=== PATIENT | male | born 1960 | race Caucasian/White ===

== ENCOUNTER 2017-03-02 14:27 | Observation (INO) | payer MEDICARE ==
[~2017-03-02] VITALS: Ht 177.8 cm; Wt 186.4 kg
--- NOTE | ~2017-03-02 | OP ---
PATIENT NAME: AIDEN MCKEON MEDICAL RECORD: [id number] :58 LOCATION:D. D.2127 ADMISSION DATE:03/02/17 SURGEON: SELINA KOCH MD DATE OF OPERATION: 03/05/2017 PROCEDURES: Left heart catheterization, selective coronary angiography, right femoral artery approach. CATHETERS: A 5-Pashto sheath, 5/4 left and right Geronimo, 5/4 pig. The procedure was well tolerated and the patient returned to lainez. Sheath removed. Adequate hemostasis was obtained with ExoSeal. FINDINGS: Left ventriculography in 30-degree HERNANDES view: Normal wall motion, normal systolic function. CORONARY ANATOMY: LEFT MAIN: Left main is free of disease. LAD: An area of previous stenting is widely patent with no evidence of stenosis or restenosis. 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 CIRCUMFLEX: Free of disease. RIGHT CORONARY ARTERY: Free of disease. IMPRESSION: No evidence of restenosis. 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 Normal left ventricular systolic function. Noncardiac etiology and symptomatology. TRANSINT:[id number] Voice Confirmation ID: [id number] DOCUMENT ID: [id number] SELINA KOCH MD CC: [id number] DICTATION DATE: 03/05/17 1346 STATISTICAL DEVELOPER: 03/05/17 1503 ADM IN [facility] [address] [place] [address]
--- NOTE | ~2017-03-02 | HEMODYNAMI ---
PATIENT:AIDEN MCKEON MEDICAL RECORD: [id number] : 58 [facility] [id number] ADMISSION DATE: 03/02/17 Generatedon:03/05/201713:48 Patient name: AIDEN MCKEON Patient #: [id number] SSN: [id number] : 1960 Date of study: 03/05/2017 Page: Of Hemodynamic Procedure Report Patient Data Patient Demographics Procedure consent was obtained First Name: AIDEN Gender: Male Last Name: LINDA : 1960 [facility] Initial: T Age: 56 year(s) Patient #: [id number] Race: SSN: [id number] Additional ID: [id number] Contact details Address: [place] [address] State: [place] City: [place] Zip code: [address] Past Medical History Allergies Allergen Reaction Date Comments Reported Iodine 10/07/2015 Dilantin 10/07/2015 Sulfa, Morphine, Coreg, Fentanyl, Pindolol Admission Admission Data Admission Date: 03/02/2017 Admission Time: 15:08 Arrival Date: 03/02/2017 Arrival Time: 15:08 Admit Source: Other Insurance Payor: Medicare Room #: D.2127 Weight (lbs.): 410.06 Weight (kg.): 186 Lab Results Lab Result Date: 03/05/2017 Lab Result Time: 0:00 Biochemistry Name Units Result Min Max BUN mg/dl 24 --(----)-* 7 18 Creatinine mg/dl 1.1 --(--*-)-- 0.6 1.3 CBC Name Units Result Min Max Hemoglobin g/dl 17.1 --(---*)-- 13.5 17.5 Procedure Procedure Types Cath Procedure Diagnostic Procedure LHC LHC w/Coronaries Miscellaneous Procedures Moderate Sedation up to 30 minutes Procedure Description Procedure Date Procedure Date: 03/05/2017 Procedure Start Time: 13:31 Procedure End Time: 13:41 Procedure Staff Name Function Cale Ohara MD Performing Physician Floridalma Verduzco RT Scrub Alessandro Mars RN Nurse Kellie Lambert RT Monitor Vicente Hoyos MD Assisting physician Procedure Data Cath Procedure Fluoroscopy Diagnostic fluoroscopy Total fluoroscopy Time: 1.1 time: 1.1 min min Diagnostic fluoroscopy Total fluoroscopy dose: 784 dose: 784 mGy mGy Contrast Material Contrast Material Type Amount (ml) Isovue 300 56 Entry Location Entry Primary Successful Side Size Upsize Upsize Entry Closure Succes sful Closure Location (Fr) 1 (Fr) 2 (Fr) Remarks Device Remarks Femoral Right 5 Fr Exoseal artery Estimated blood loss: 5 ml Diagnostic catheters Device Type Used For End Catheter Placement Cordis 5Fr JL 4.0 Left Coronary Catheter (MP) Angiography Cordis 5Fr 3DRC Catheter Right Coronary (MP) Angiography Cordis 5Fr Pigtail LV Angiography Catheter (MP) Procedure Complications No complications Procedure Medications Medication Administration Route Dosage 0.9% NaCl I.V. 100 ml/hr Oxygen NRB 12 l/min Refer to Anesthesia Notes for Sedation Medications Hemodynamics Rest HGB: 17.1 (g/dl) Heart Rate: 70 (bpm) Pressure Samples Time Site Value (mmHg) Purpose Heart Use Rate(bpm) 13:37 LV 109/12,13 Snapshot 72 13:38 AO (78) Pullback 64 13:38 LV 109/14,13 Pullback 64 Gradients Valve Time Site 1 Site Mean SEP/DFP Peak To Heart Use 2 (mmHg) (sec/min) Peak Rate (mmHg) (bpm) Aortic 13:38 LV AO 11 11 64 109/14,13 (78) Calculations Valve P-P Mean Valve Index Valve Source Name Gradient Area Flow (cm2) Aortic 11 11 Snapshots Pre Cath Intra NCS Post Cath Vital Signs Time Heart Resp SPO2 etCO2 [id number] Respiration NIBP (mmHg) Rhythm Pain Sedation Rate (ipm) (%) (mmHg) (mmHg) (CO2) (ipm) Status Level (bpm) 13:19:08 68 16 96 0 0 149/86(129) NSR 0 (1 1) 10(A) , No pain 13:23:22 71 11 96 0 0 146/80(117) NSR 0 (1 1) 10(A) , No pain 13:27:38 69 13 96 16.5 6.7 17 125/70(87) NSR 0 (1 1) 10(A) , No pain 13:31:50 66 23 95 29.3 4.5 9 116/65(81) NSR 0 (1 1) 9(A) , No pain 13:36:00 71 19 92 2.2 2.2 113/60(85) NSR 0 (1 1) 9(A) , No pain 13:40:00 72 22 95 27.8 1.5 107/62(83) NSR 0 (1 1) 9(A) , No pain 13:47:52 70 21 96 18.8 6.7 19 118/67(85) NSR 0 (1 1) 9(A) , No pain Medications Time Medication Route Dose Verified Delivered Reason Notes Effectiven ess by by 13:13:36 0.9% NaCl I.V. 100 Levi Levi Per ml/hr Velia Gunn physician RN RN 13:15:04 Oxygen NRB 12 Levi Levi Per l/min Velia Gunn physician RN RN 13:27:53 Refer to Levi Levi Anesthesia Velia Gunn Notes for RN RN Sedation Medications Procedure Log Time Note 12:44:41 Informed consent obtained and on chart 12:45:12 Lab Result : Hemoglobin 17.1 g/dl 12:45:12 Lab Result : Creatinine 1.1 mg/dl 12:45:12 Lab Result : BUN 24 mg/dl 12:45:18 Diagnostic Cath Status : Elective 12:47:27 Admit Source: Other 12:48:09 Arrival Date: 03/02/2017 3:08:00 PM 12:48:19 Insurance Payor : Medicare 12:50:08 Alessandro Mars RN sent for patient. Start room use. 12:50:09 Time tracking: Regular hours 12:50:15 Plan of Care:Hemodynamics will remain stable., Cardiac rhythm will remain stable., Comfort level will be maintained., Respiratory function will remain adequate., Patient/ family verbilizes understanding of procedure., Procedure tolerated without complication., Recovers from procedure without complications.. 12:56:35 Mikey Sandoval present and monitoring patient for TIVA. 13:03:00 Patient Weight : 410.06 kg 13:06:18 Patient received from Med II to CCL 1 Alert and oriented. Tansferred to table in Supine position. 13:06:20 Warm blankets applied, and marlin hugger turned on for patient comfort. 13:06:20 Correct patient and procedure confirmed by team. 13:06:23 ECG and BP/O2 sat monitors applied to patient. 13:13:36 0.9% NaCl 100 ml/hr I.V. was administered by Levi Gunn RN; Per physician; 13:15:04 Oxygen 12 l/min NRB was administered by Levi Gunn RN; Per physician; 13:18:06 Vital chart was started 13:18:08 Baseline sample Acquired. 13:18:12 Rhythm: sinus rhythm 13:18:14 Full Disclosure recording started 13:18:27 H&P Date Dictated: 03/02/2017 Within 30 days and on chart., H&P Addendum completed by physician on day of procedure. (MUST COMPLETE FOR ALL OUTPATIENTS). 13:18:29 Pre-procedure instructions explained to patient. 13:18:30 Pre-op teaching completed and patient verbalized understanding. 13:18:31 Family in waiting room. 13:18:33 Patient NPO since Midnight. 13:18:39 Is the patient allergic to Iodine/contrast media? Yes. 13:18:41 Was the patient premedicated? Yes 13:18:43 Is patient on blood thinner?Yes 13:18:48 ACC The patient was administered the following blood thiners within the last 24 hours: ACCPlavix 13:18:51 Patient diabetic? Yes. 13:18:56 If diabetic: On Metformin? No 13:19:11 Previous problem with sedation/anesthesia? Yes ? 13:19:13 Previous problem with sedation/anesthesia? No ? 13:19:15 Snore? Yes 13:19:16 Sleep apnea? Yes 13:19:18 Deviated septum? No 13:19:20 Opens mouth fully? Yes 13:19:30 Sticks out tongue? Yes 13:19:38 Airway obstruction? Yes asthma 13:19:42 Dentures? No ? 13:22:00 Pre procedure: right dorsailis pedis pulse 1+ Palpable, but thready & weak; easily obliterated 13:22:05 Pre procedure: left dorsailis pedis pulse 1+ Palpable, but thready & weak; easily obliterated 13:22:09 Patient pain scale 0/10 ?. 13:22:17 IV patent on arrival in right IJ with 0.9% NaCl at KVO. 13:22:22 Lab results completed and on chart. 13:22:27 Right groin area was prepped with chlora-prep and draped in sterile fashion 13:22:28 Alarms reviewed by R. N. 13:22:29 Sharps counted by scrub and verified by R.N. 13:22:32 Physician paged 13:23:02 Physician arrived 13:23:06 --------ALL STOP TIME OUT------ 13:23:07 Final Timeout: patient, procedure, and site verified with staff and physician. All members of the team are in agreement. 13:23:09 Right groin site verified by team. 13:23:14 Physical assessment completed. ASA score P 3 - A patient with severe systemic disease as per Vicente Hoyos MD. 13:23:19 Sedation plan: TIVA Propofol 13:23:38 Use device set Femoral Dx 13:23:44 Acist Syringe opened to sterile field. 13:23:45 Bag Decanter opened to sterile field. 13:23:46 Medline Cath Pack opened to sterile field. 13:23:50 Terumo 5Fr Greencastle Sheath opened to sterile field. 13:23:51 St Richi 260cm J .035 wire opened to sterile field. 13:23:53 Acist Hand Control opened to sterile field. 13:23:53 Acist Manifold opened to sterile field. 13:23:56 Diagnostic Infinity 5Fr Multipack catheter opened to sterile field. 13:23:57 Tegaderm 4 x 4 opened to sterile field. 13:27:53 Refer to Anesthesia Notes for Sedation Medications was administered by Levi Gunn RN; ; 13:30:54 Procedure started. 13:31:04 Local anesthetic to right femoral artery with Lidocaine 2% by Vicente Hoyos MD.INITIAL ACCESS ONLY 13:33:02 A 5 Fr sheath was inserted into the Right Femoral artery 13:33:21 A Cordis 5Fr JL 4.0 Catheter (MP) was advanced over the wire and used for Left Coronary Angiography. 13:34:29 LCA angiography performed. 13::38 Injector settings: Ml/sec: 3, Volume: 6, 13:35:20 Catheter removed. 13:35:27 A Cordis 5Fr 3DRC Catheter (MP) was advanced over the wire and used for Right Coronary Angiography. 13:36:29 RCA angiography performed. 13:36:32 Injector settings: Ml/sec: 3, Volume: 6, 13:36:43 Catheter removed. 13:36:51 A Cordis 5Fr Pigtail Catheter (MP) was advanced over the wire and used for LV Angiography. 13:38:19 LV gram done using HERNANDES 13:38:21 Injector settings: Ml/sec: 5, Volume: 15, 13:38:28 EF : 55 % 13:38:39 Catheter removed. 13:39:03 Sheath removed intact; hemostasis achieved with Exoseal to the Right Femoral artery. 13:39:07 Procedure ended.(Physican Out) 13:39:57 Fluoroscopy time 01.10 minutes. 13:40:08 Flurop Dose total: 784 13:40:08 Fluoroscopy dose: 784 mGy 13:40:16 Contrast amount:Isovue 300 56ml. 13:40:18 Sharps counted by scrub and verified by R.N. 13:40:20 Insertion/operative site no bleeding no hematoma. 13:40:24 Post-op/insertion site Right Femoral artery dressed using a 4 x 4 and Tegaderm. 13:40:28 Post right femoral artery:stable 13:40:30 Post Procedure Pulses reassessed and unchanged 13:40:34 Post procedure rhythm: unchanged. 13:40:41 Estimated blood loss: 5 ml 13:40:45 Post procedure instruction explained to patient.Patient verbalizes understanding. 13:40:46 Patient needs reinforcement of post procedure teaching. 13:41:09 Procedure type changed to Cath procedure, Diagnostic procedure, LHC, LHC w/Coronaries, Miscellaneous Procedures, Moderate Sedation up to 30 minutes 13:41:10 Procedure and supply charges have been captured, reviewed, submitted and are correct. 13:41:15 Procedure Complication : No complications 13:41:19 Vital chart was stopped 13:41:24 Report given to [facility]. 13:41:26 See physician's report for complete and final results. 13:41:30 Patient transfered to [facility] with Stretcher. 13:41:33 Procedure ended. 13:41:33 Full Disclosure recording stopped 13:41:36 End room use (Document Last) Device Usage Item Name Manufacture Quantity Catalog Hospital Part Current Minimal Lo t# / Number Charge Number Stock Stock Serial# Code Acist Acist 1 77569 [id number] 278411 836063 20 Syringe Medical Systems Inc Bag Microtek 1 2002S 890688 43704 295764 5 Decanter Medical Inc. Medline Cardinal 1 [id number] 642061 87471 060976 5 Cath Pack Health Terumo 5Fr Terumo 1 [id number] 977314 435033 791398 [address] St Richi 1 629271 513337 189737 639200 30 260cm J .035 wire Acist Hand Acist 1 86234 039347 492451 434445 5 Control Medical Systems Inc Acist Acist 1 84133 249332 777411 026082 5 Manifold Medical Systems Inc Diagnostic Cardinal 1 [id number] 026500 33477 328149 30 Infinity Health 5Fr Multipack catheter Tegaderm 4 3M 1 1626W 323029 764735 107489 5 x 4 Cordis 5Fr Cardinal 1 277648 5 JL 4.0 Health Catheter (MP) Cordis 5Fr Cardinal 1 113986 5 3DRC Health Catheter (MP) Cordis 5Fr Cardinal 1 408642 5 Pigtail Health Catheter (MP) Signature Audit Tama Stage Time Signature Unsigned Intra-Procedure 03/05/2017 Kellie Lambert 1:48:18 PM RT(R) Signatures Monitor : Kellie Lambert RT Signature : Date : Time : [id number] [place] [address]
[~2017-03-02 14:27] MED LIST: ASPIRIN325 MG PO; BYSTOLIC10 MG PO; CARDIZEM CD240 MG PO; CATAPRES0.1 MG PO; CATAPRES0.2 MG PO; LANTUS SOL100 UNIT/1 SQ; LIDOCAINE TP; MARINOL10 MG PO; METOPROLOL TART50 MG PO; MYLANTA PO; NITROSTAT0.4 MG SL; NOVOLOG100 U/M1 SC; OXYCONTIN30 MG PO; PLAVIX75 MG PO; PREDNISONE20 MG PO; PROAIR HFA8.5 GM INH; TOPROL XL100 MG PO; VALIUM5 MG PO; VITAMIN D2000 UNIT PO; [UNRECOGNIZED DRUG - OTHER] PO
[2017-03-02 15:00] LABS: BASOPHILS 0.5 % (0-2); EOSINOPHILS 2.5 % (0-7); HEMATOCRIT 45.8 % (42.0-54.0); HEMOGLOBIN 14.9 g/dL (13.5-17.5); IMMATURE GRANULOCYTES 0.9 % (0-5); LYMPHOCYTES 28.1 % (15-50); MCH 32.3 pg (26.0-34.0); MCHC 32.5 g/dL (31.0-37.0); MCV 99.1 fL (80.0-100.0); MEAN PLATELET VOLUME 11.6 fL (7.4-10.4); MONOCYTES 14.6 % (2-11); NEUTROPHILS 53.4 % (40-80); PLATELET COUNT 175 10x3/uL (130-400); RBC 4.62 10x6/uL (4.20-6.10); RDW 12.6 % (11.5-14.5); WBC 11.8 10x3/uL (4.8-10.8)
[2017-03-02 15:19] LABS: ALBUMIN 3.3 g/dL (3.4-5.0); ALKALINE PHOSPHATASE 45 U/L (46-116); ALT (SGPT) 28 U/L (10-68); BILIRUBIN - TOTAL 0.23 mg/dL (0.2-1.3); CALC OSMOLALITY 280 mosm/kg (275-300); CALCIUM 8.4 mg/dL (8.5-10.1); CHLORIDE - SERUM 103 mmol/L (98-107); CREATININE - SERUM 0.8 mg/dL (0.6-1.3); GLUCOSE 90 mg/dL (74-106); POTASSIUM - SERUM 4.1 mmol/L (3.5-5.1); SODIUM 139 mmol/L (136-145); UREA NITROGEN 21 mg/dL (7-18); eGFR NON AFRICAN AMERICAN > 90 mL/min (90-120)
[2017-03-02 15:30] LABS: CHOL - HDL RATIO 5.8 ratio (2.3-4.9); CHOLESTEROL, TOTAL 245 mg/dL (0-200); CKMB 0.2 U/L (0.0-3.6); CREATINE KINASE 61 UL (21-232); HDL CHOLESTEROL 42 mg/dL (32-96); LDL CHOLESTEROL 140 mg/dL (0-100); LDL-HDL RATIO 3.3 ratio (1.5-3.5); TRIGLYCERIDE 315 mg/dL (30-200)
[2017-03-02 15:31] LABS: TROPONIN-I < 0.017 ng/mL (0.000-0.060)
[2017-03-02] MEDS ORDERED: OXYCONTIN10 MG PO (15:52)
[2017-03-02] MEDS ORDERED: LISINOPRIL10 MG PO (15:53)
[2017-03-02] MEDS ORDERED: FUROSEMIDE20 MG PO (15:53)
[2017-03-02 15:54] VITALS: BP 144/77; Ht 177.8 cm; Wt 186.4 kg
[2017-03-02] MEDS ORDERED: K-DUR20 MEQ PO (15:54)
[2017-03-02] MEDS ORDERED: METOLAZONE5 MG PO (15:54)
--- NOTE | 2017-03-02 16:04 | NUR ---
PT TO ROOM FROM ADMISSIONS ALERT AND ORIENTED. VS ARE WNL. ADMISSION COMPLETE.
--- NOTE | 2017-03-02 16:17 | NUR ---
PT ON TELE RUNNING SINUS DREW [address] FLOYD HERE TO SEE PT. AND DAUGHTER ARE AT BEDSIDE.
--- NOTE | 2017-03-02 17:02 | NUR ---
ASIA VAS NURSE SITED PT TO R UPPER ARM 20G X4 STICKS.
--- NOTE | 2017-03-02 18:14 | NUR ---
PT SITTING UP IN BED WATCHES TV DENIES NEEDS
--- NOTE | 2017-03-02 19:18 | NUR ---
PT IN BED. REQUESTS A LARGER BED. [employer] CALLED. DENIES FURTHER NEEDS WILL CONTINUE TO MONITOR
[2017-03-02 20:00] VITALS: BP 128/65
--- NOTE | 2017-03-03 03:21 | NUR ---
PT COMPLAINING OF CHEST PAIN. DR FLOYD PAGED AT [phone] STILL NO CALL BACK.
[2017-03-03 04:00] VITALS: BP 124/65
--- NOTE | 2017-03-03 07:05 | NUR ---
RECEIVED REPORT. ASSUMED CARE OF PATIENT. PATIENT SITTING TO CHAIR AT BEDSIDE WITH ATTENTION TOWARD TELEVISION. CALL LIGHT WITHIN REACH. NO DISTRESS. DENIES CHEST PAIN.
[2017-03-03 08:00] VITALS: BP 178/72
--- NOTE | 2017-03-03 08:50 | NUR ---
HERE. PATIENT IS SINUS DREW, 57, AND HAS METOPROLOL 100MG DUE. RECEIVED NEW ORDER TO ONLY GIVE METOPROLOL 50MG. NEW ORDER INPUTTED.
[2017-03-03 12:00] VITALS: BP 130/76
--- NOTE | 2017-03-03 13:08 | NUR ---
CALLED IMAGING TO SPEAK TO STEFANI, NEED TO KNOW WHEN TO MEDICATE PATIENT ONE HOUR BEFORE HE IS TO BE TAKEN FOR CTA OF CHEST. SPOKE WITH ZI DUE TO NENO HINKLE EXTREMELY BUSY AND ZI STATES SHE WILL TELL STEFANI TO CALL ONE HOUR PRIOR TO COMING TO GET PATIENT.
--- NOTE | 2017-03-03 14:12 | NUR ---
PREMEDICATED FOR CTA OF CHEST AT THIS TIME. NO DISTRESS.
--- NOTE | 2017-03-03 14:22 | NUR ---
RESTING WITH CPAP ON AT THIS TIME AWAITING FOR IMAGING TO TAKE HIM TO HIS CTA.
--- NOTE | 2017-03-03 15:10 | NUR ---
PATIENT LEFT UNIT VIA WHEELCHAIR FOR CTA. NO DISTRESS UPON LEAVING UNIT.
[2017-03-03 16:00] VITALS: BP 113/62
--- NOTE | 2017-03-03 16:00 | NUR ---
PATIENT RETURNED TO UNIT VIA WHEELCHAIR. NENO HINKLE STATED SHE WAS UNABLE TO FLUSH PATIENTS IV AND STARTED A NEW 20 GAUGE TO LEFT AC. NO DISTRESS UPON RETURNING TO UNIT. ASSISTED PATIENT TO BED. CALL LIGHT WITHIN REACH. PATIENTS AT BEDSIDE.
--- NOTE | 2017-03-03 16:30 | NUR ---
FSBS 138. NO INSULIN COVERAGE ORDERED.
--- NOTE | 2017-03-03 18:37 | NUR ---
RESTING WELL IN BED WITH CPAP. NO DISTRESS.
[2017-03-03 19:00] VITALS: BP 124/52
--- NOTE | 2017-03-03 20:26 | NUR ---
INITIAL ROUNDS COMPLETED AT 1910 HRS. PT DENIED ANY DISCOMFORT. ASSESSMENT COMPLETED AT 0 HRS. VSS. IV TO UPPER R ARM OCCLUDED. IV DC'S WITH CATHETER INTACT. IV TO LAC INTACT. PT STATED IT ALSO WAS HURTING. THAT IV DC'D WITH CATHETER INTACT. SR PER CM HR 78. LUNGS DIMINISHED IN BASES BILAT. WILL CONTINUE TO MONITOR. CALL LIGHT WITHIN REACH.
--- NOTE | 2017-03-03 22:21 | NUR ---
PM MEDS GIVEN. OXYCONTIN 20MG PO GIVEN FOR C/O CHRONIC BACK PAIN. PT REFUSES NEW IV AT THAT TIME. PT CURRENTLY RESTING WITH EYES CLOSED. RESP EVEN AND REGULAR. SR UP X2, CALL LIGHT WITHIN REACH.
[2017-03-04] VITALS: BP 106/44
--- NOTE | 2017-03-04 00:08 | NUR ---
PT RESTING WITH EYES CLOSED. ON L SIDE. RESP EVEN AND REGULAR. SR UP X2, CALL LIGHT WITHIN REACH.
--- NOTE | 2017-03-04 02:10 | NUR ---
PT RESTING WITH EYES CLOSED IN PRONE POSITION. RESP EVEN AND REGULAR. SR UP X2, CALL LIGHT WITHIN REACH.
[2017-03-04 04:00] VITALS: BP 176/89
--- NOTE | 2017-03-04 04:05 | NUR ---
PT AWAKE; DENIES ANY DISCOMFORT. WILL CONTINUE TO MONITOR.
--- NOTE | 2017-03-04 06:21 | NUR ---
VSS THROUGHOUT NIGHT. SR PER CM. PT STATED OXYCONTIN CONTROLLED CHRONIC BACK PAIN. AM FSBS 163. NEEDS MET; WILL CONTINUE TO MONITOR.
--- NOTE | 2017-03-04 07:00 | NUR ---
RECEIVED REPORT. ASSUMED CARE OF PATIENT. PATIENT SITTING TO CHAIR AT BEDSIDE. PATIENT COMPLAINING OF HEADACHE AND THAT HE STILL HASN'T HAD A BOWEL MOVEMENT SINCE HIS ADMISSION DATE OF 03/02/17. AT BEDSIDE FOR ROUNDS. NO DISTRESS. CALL LIGHT WITHIN REACH.
[2017-03-04 08:00] VITALS: BP 150/84
--- NOTE | 2017-03-04 09:15 | NUR ---
BRICK OFF BEARER AT BEDSIDE FOR VENOUS DOPPLER AT THIS TIME.
[2017-03-04 09:18] LABS: BASOPHILS 0.1 % (0-2); EOSINOPHILS 0 % (0-7); HEMATOCRIT 50.1 % (42.0-54.0); HEMOGLOBIN 17.1 g/dL (13.5-17.5); IMMATURE GRANULOCYTES 0.4 % (0-5); LYMPHOCYTES 9.3 % (15-50); MCH 33.8 pg (26.0-34.0); MCHC 34.1 g/dL (31.0-37.0); MEAN PLATELET VOLUME 11.7 fL (7.4-10.4); NEUTROPHILS 82.2 % (40-80); PLATELET COUNT 197 10x3/uL (130-400); RBC 5.06 10x6/uL (4.20-6.10); RDW 12.8 % (11.5-14.5); WBC 19.2 10x3/uL (4.8-10.8)
[2017-03-04 09:25] LABS: ANION GAP 18.7 mmol/L (8-16); CALCIUM 9.3 mg/dL (8.5-10.1); CARBON DIOXIDE 23.7 mmol/L (21.0-32.0); POTASSIUM - SERUM 4.4 mmol/L (3.5-5.1)
[2017-03-04 09:26] LABS: CREATININE - SERUM 1.1 mg/dL (0.6-1.3)
--- NOTE | 2017-03-04 11:30 | NUR ---
FSBS 171. NO INSULIN ADMINISTERED. NO SLIDING SCALE ORDERED AT THIS TIME.
--- NOTE | 2017-03-04 12:57 | NUR ---
CONSENTS SIGNED AND PLACED ON PATIENT CHART AT THIS TIME.
[2017-03-04 16:00] VITALS: BP 157/75
--- NOTE | 2017-03-04 16:56 | NUR ---
MEDICATED FOR HEADACHE AT THIS TIME. NO DISTRESS. SITTING TO SIDE OF BED WATCHING MOVIE ON PERSONAL TABLET.
[2017-03-04 20:00] VITALS: BP 132/70
--- NOTE | 2017-03-04 20:13 | NUR ---
INIITAL ROUNDS COMPETED AT 1920 HRS. PT DENIED NAY DISCOMFORT. ASSESSMENT COMPLETED AT 1930 HRS. NO IV. PT REFUSES IV UNTIL AM SHIFT. O2 4LNC. USES OWN CPA AT HS. 2+ GENERALIZED EDEMA NOTED. BRUISING NOTED TO TOP OF R FOT BY TOES. WILL CONTINUE TO MONITOR. SR UP X2, CALL LIGHT WITHIN REACH.
--- NOTE | 2017-03-04 22:19 | NUR ---
PM MEDS GIVEN. PM FSBS 135. OXYCONTIN 20MG PO GIVEN FOR C/O CHRONIC BACK PAIN. WILL CONTINUE TO MONITOR. HOME CPAP IN USE.
--- NOTE | 2017-03-05 00:34 | NUR ---
PT RESTING WITH EYES CLOSED IN PRONE POSITION. RESP EVEN ADN REGULAR. HOME CPAP IN USE. SR UP X2, CALL LIGHT WITHIN REACH.
--- NOTE | 2017-03-05 02:43 | NUR ---
PT RESTING WITH EYES CLOSED. RESP EVEN AND REGULAR. SR UP X2, CALL LIGHT WITHIN REACH.
--- NOTE | 2017-03-05 03:59 | NUR ---
HIBICLENS SHOWER DONE, BED LINENS CHANGED. ATTEMPTED IV X1 WITHOUT SUCCESS. PT STATED HE USUALLY HAS ANESTHESIA START HIS IVS. 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 WILL CONTINUE TO MONITOR.
[2017-03-05 04:00] VITALS: BP 166/94
--- NOTE | 2017-03-05 06:16 | NUR ---
VSS THROUGHOUT NIGHT. SR PER CM. PT STATED OXYCONTIN CONTROLLED CHRONIC BACK PAIN. NEEDS MET; WILL CONTINUE TO MONITOR.
[2017-03-05 08:00] VITALS: BP 118/41
[2017-03-05 19:00] VITALS: BP 104/50
--- NOTE | 2017-03-05 20:40 | NUR ---
HS MEDS GIVEN WITH FRESH ICE WATER, TYLENOL GIVEN FOR C/O HEADACHE.
--- NOTE | 2017-03-06 03:28 | NUR ---
RESTING WITH EYES CLOSED, RESPERATIONS EVEN, NO S/S DISTRESS NOTED.
--- NOTE | 2017-03-06 03:45 | NUR ---
RESTNG IN BED WITH NO DISTRESS. CALL LIGHT IN REACH. CPOC.
[2017-03-06 04:00] VITALS: BP 129/72
--- NOTE | 2017-03-06 07:15 | NUR ---
RESTING QUIETLY RESP UNLABORED NAD NOTED
--- NOTE | 2017-03-06 07:20 | NUR ---
ASSESSMENT COMPLETED. DENIES ANY NEEDS. RIGHT IJ SL. UP AB TONE. TELEMERTY SHOWS SR. AWAITING HIS TO COME GET HIM FOR DISCHARGE
[2017-03-06 08:18] VITALS: BP 131/54
--- NOTE | 2017-03-06 11:30 | NUR ---
IJ REMOVED PRESSURE HELD. NO BLEEDING.
--- NOTE | 2017-03-06 11:48 | NUR ---
DISCHARGED. INSTRUCTIONS GIVEN. TO PRIVATR CAR PER WHEELCHAIR
== END 2017-03-06 11:50 | disposition home or self-care (01) ==
LOC: D.ER 14:27 → D.M2 15:08 → OBSVTIME 15:08 → D.M2 03-06 11:50
PROVIDERS: Emergency Medicine; Internal Medicine Cardiovascular Disease; ADMIT Internal Medicine Interventional Cardiology
DX: R07.89 Other chest pain (principal); I25.10 Atherosclerotic heart disease of native coronary artery without angina pectoris; Z95.5 Presence of coronary angioplasty implant and graft; I10 Essential (primary) hypertension

== ENCOUNTER 2017-09-01 15:08 | Inpatient (IN) | payer MEDICARE ==
[~2017-09-01] VITALS: Ht 177.8 cm; Wt 173.3 kg
[~2017-09-01 15:08] MED LIST changes: +FUROSEMIDE20 MG PO; +K-DUR20 MEQ PO; +LISINOPRIL10 MG PO; +METOLAZONE5 MG PO; +OXYCONTIN10 MG PO
[2017-09-01 15:49] LABS: BASOPHILS 0.3 % (0-2); EOSINOPHILS 0.1 % (0-7); HEMATOCRIT 44.8 % (42.0-54.0); HEMOGLOBIN 15.7 g/dL (13.5-17.5); IMMATURE GRANULOCYTES 0.8 % (0-5); LYMPHOCYTES 20.8 % (15-50); MCH 33.8 pg (26.0-34.0); MCV 96.3 fL (80.0-100.0); MEAN PLATELET VOLUME 11.3 fL (7.4-10.4); MONOCYTES 13.2 % (2-11); NEUTROPHILS 64.8 % (40-80); PLATELET COUNT 168 10x3/uL (130-400); RBC 4.65 10x6/uL (4.20-6.10); RDW 12.3 % (11.5-14.5); WBC 16.4 10x3/uL (4.8-10.8)
[2017-09-01 16:11] LABS: ALBUMIN 3.9 g/dL (3.4-5.0); ALKALINE PHOSPHATASE 57 U/L (46-116); ALT (SGPT) 44 U/L (10-68); AMYLASE - SERUM 108 U/L (25-115); BILIRUBIN - TOTAL 1.09 mg/dL (0.2-1.3); CALCIUM 8.8 mg/dL (8.5-10.1); CARBON DIOXIDE 27.1 mmol/L (21.0-32.0); CHLORIDE - SERUM 97 mmol/L (98-107); LIPASE 841 U/L (73-393); PROTEIN - SERUM 7.5 g/dL (6.4-8.2); SODIUM 138 mmol/L (136-145); UREA NITROGEN 20 mg/dL (7-18); eGFR NON AFRICAN AMERICAN 81 mL/min (90-120)
[2017-09-01 16:12] LABS: CALC OSMOLALITY 279 mosm/kg (275-300); GLUCOSE 118 mg/dL (74-106)
[2017-09-01 16:17] LABS: POTASSIUM - SERUM 2.9 mmol/L (3.5-5.1)
[2017-09-02] VITALS (7 sets, daily range): BP systolic 124–164; BP diastolic 78–104; BMI 55.6
[2017-09-02] MEDS ORDERED: METOPROLOL TAR100 M1 PO (04:53)
[2017-09-02] MEDS ORDERED: MACRODANTIN100 MG PO (04:55)
[2017-09-02] MEDS ORDERED: UROCIT-K10 MEQ PO (04:56)
[2017-09-02] MEDS ORDERED: METHADONE5 MG PO (04:59)
[2017-09-02 16:23] LABS: BASOPHILS 0.2 % (0-2); EOSINOPHILS 0.7 % (0-7); HEMATOCRIT 41.6 % (42.0-54.0); HEMOGLOBIN 14.5 g/dL (13.5-17.5); IMMATURE GRANULOCYTES 0.7 % (0-5); LYMPHOCYTES 20.4 % (15-50); MCH 33.4 pg (26.0-34.0); MCHC 34.9 g/dL (31.0-37.0); MCV 95.9 fL (80.0-100.0); MEAN PLATELET VOLUME 11.4 fL (7.4-10.4); PLATELET COUNT 141 10x3/uL (130-400); RBC 4.34 10x6/uL (4.20-6.10); RDW 12.1 % (11.5-14.5)
[2017-09-02 16:29] LABS: WBC 11.7 10x3/uL (4.8-10.8)
[2017-09-02 16:48] LABS: CALC OSMOLALITY 275 mosm/kg (275-300); CALCIUM 8.2 mg/dL (8.5-10.1); CARBON DIOXIDE 29.1 mmol/L (21.0-32.0); CHLORIDE - SERUM 100 mmol/L (98-107); GLUCOSE 104 mg/dL (74-106); LIPASE 437 U/L (73-393); MAGNESIUM - SERUM 1.7 mg/dL (1.8-2.4); POTASSIUM - SERUM 3.1 mmol/L (3.5-5.1); SODIUM 138 mmol/L (136-145); eGFR NON AFRICAN AMERICAN 81 mL/min (90-120)
[2017-09-02 16:57] LABS: UREA NITROGEN 12 mg/dL (7-18)
[2017-09-02 22:58] LABS: APPEARANCE CLEAR (CLEAR); BILIRUBIN NEGATIVE (NEGATIVE); COLOR YELLOW (YELLOW); GLUCOSE NEGATIVE (NEGATIVE); KETONE NEGATIVE (NEGATIVE); NITRITE NEGATIVE (NEGATIVE); PROTEIN NEGATIVE (NEGATIVE); RED CELLS - URINE 0-5 /hpf (0-5); UROBILINOGEN NORMAL (NORMAL); WHITE CELLS - URINE 0-5 /hpf (0-5)
[2017-09-03 01:42] VITALS: BP 108/63
[2017-09-03 05:34] LABS: BASOPHILS 0.3 % (0-2); EOSINOPHILS 1.2 % (0-7); HEMATOCRIT 42.4 % (42.0-54.0); HEMOGLOBIN 14.8 g/dL (13.5-17.5); IMMATURE GRANULOCYTES 1.2 % (0-5); LYMPHOCYTES 24.9 % (15-50); MCH 33.9 pg (26.0-34.0); MCHC 34.9 g/dL (31.0-37.0); MEAN PLATELET VOLUME 11.9 fL (7.4-10.4); NEUTROPHILS 60.4 % (40-80); PLATELET COUNT 145 10x3/uL (130-400); RBC 4.37 10x6/uL (4.20-6.10); RDW 12.5 % (11.5-14.5); WBC 12.1 10x3/uL (4.8-10.8)
[2017-09-03 05:55] VITALS: BP 136/86
[2017-09-03 05:59] LABS: CALCIUM 8.3 mg/dL (8.5-10.1); CHOL - HDL RATIO 4.9 ratio (2.3-4.9); CREATININE - SERUM 1.1 mg/dL (0.6-1.3); LDL-HDL RATIO 3.3 ratio (1.5-3.5)
[2017-09-03 09:26] VITALS: BP 130/102
[2017-09-03 12:43] VITALS: BP 152/95
[2017-09-03 14:58] VITALS: Ht 177.8 cm; Wt 173.3 kg
[2017-09-03 17:33] VITALS: BP 120/83
[2017-09-03 21:52] VITALS: BP 115/81
[2017-09-04 00:48] VITALS: BP 124/84
[2017-09-04 05:28] LABS: ANION GAP 14.4 mmol/L (8-16); CALCIUM 8.8 mg/dL (8.5-10.1); CARBON DIOXIDE 27.3 mmol/L (21.0-32.0)
[2017-09-04 05:31] LABS: HEMATOCRIT 44.3 % (42.0-54.0); HEMOGLOBIN 15.6 g/dL (13.5-17.5); LYMPHOCYTES 24.6 % (15-50); MCH 33.1 pg (26.0-34.0); MCHC 35.2 g/dL (31.0-37.0); MEAN PLATELET VOLUME 11.4 fL (7.4-10.4); NEUTROPHILS 59.5 % (40-80); PLATELET COUNT 147 10x3/uL (130-400); RBC 4.71 10x6/uL (4.20-6.10); RDW 12.2 % (11.5-14.5); WBC 12.1 10x3/uL (4.8-10.8)
[2017-09-04 05:33] VITALS: BP 132/63
[2017-09-04 05:33] LABS: MCV 94.1 fL (80.0-100.0)
[2017-09-04 06:43] LABS: CREATININE - SERUM 1.5 mg/dL (0.6-1.3); POTASSIUM - SERUM 2.7 mmol/L (3.5-5.1)
[2017-09-04 08:30] VITALS: BP 108/54
[2017-09-04 12:08] VITALS: BP 98/66
[2017-09-04 14:21] LABS: MAGNESIUM - SERUM 1.6 mg/dL (1.8-2.4); PHOSPHOROUS 3.4 mg/dL (2.5-4.9)
[2017-09-04 16:52] VITALS: BP 138/92
[2017-09-04 19:00] LABS: ALBUMIN 3.5 g/dL (3.4-5.0); ANION GAP 14.5 mmol/L (8-16); BILIRUBIN - TOTAL 1.17 mg/dL (0.2-1.3); CALCIUM 8.8 mg/dL (8.5-10.1); CARBON DIOXIDE 26.3 mmol/L (21.0-32.0); CREATININE - SERUM 1.3 mg/dL (0.6-1.3); PROTEIN - SERUM 7.8 g/dL (6.4-8.2)
[2017-09-04 19:04] LABS: MAGNESIUM - SERUM 1.7 mg/dL (1.8-2.4)
[2017-09-04 19:08] LABS: POTASSIUM - SERUM 2.8 mmol/L (3.5-5.1)
[2017-09-04 21:28] VITALS: BP 109/73
[2017-09-05 00:56] VITALS: BP 122/74
[2017-09-05 04:58] LABS: BASOPHILS 0.2 % (0-2); EOSINOPHILS 2.3 % (0-7); HEMATOCRIT 43.5 % (42.0-54.0); HEMOGLOBIN 15.1 g/dL (13.5-17.5); IMMATURE GRANULOCYTES 1.7 % (0-5); LYMPHOCYTES 24.6 % (15-50); MCH 33.6 pg (26.0-34.0); MCHC 34.7 g/dL (31.0-37.0); MEAN PLATELET VOLUME 11.7 fL (7.4-10.4); MONOCYTES 15.6 % (2-11); NEUTROPHILS 55.6 % (40-80); PLATELET COUNT 166 10x3/uL (130-400); RBC 4.49 10x6/uL (4.20-6.10); RDW 12.4 % (11.5-14.5); WBC 12.1 10x3/uL (4.8-10.8)
[2017-09-05 05:03] LABS: MCV 96.9 fL (80.0-100.0)
[2017-09-05 05:15] LABS: ANION GAP 13.2 mmol/L (8-16); CREATININE - SERUM 1.2 mg/dL (0.6-1.3); POTASSIUM - SERUM 3.2 mmol/L (3.5-5.1)
[2017-09-05 08:21] VITALS: BP 115/73
[2017-09-05 12:24] VITALS: BP 120/68
== END 2017-09-05 16:23 | disposition home or self-care (01) | DRG 439 ==
LOC: D.ER 15:08 → OBSVTIME 16:53 → D.MS 16:53 → D.EDHOLD 16:53 → D.MS 18:33
PROVIDERS: Emergency Medicine; Internal Medicine Nephrology
PROC: 05HB33Z Insertion of Infusion Device into Right Basilic Vein, Percutaneous Approach (ICD-10-PCS; principal; 2017-09-03)
PROC: B54MZZA Ultrasonography of Right Upper Extremity Veins, Guidance (ICD-10-PCS; 2017-09-03)
DX: K85.90 Acute pancreatitis without necrosis or infection, unspecified (principal); Z68.43 Body mass index [BMI] 50.0-59.9, adult; I10 Essential (primary) hypertension; E78.5 Hyperlipidemia, unspecified; E11.9 Type 2 diabetes mellitus without complications; I25.10 Atherosclerotic heart disease of native coronary artery without angina pectoris; J44.9 Chronic obstructive pulmonary disease, unspecified; E66.01 Morbid (severe) obesity due to excess calories; G47.33 Obstructive sleep apnea (adult) (pediatric); H54.8 Legal blindness, as defined in USA; G35 Multiple sclerosis; E87.6 Hypokalemia; I73.9 Peripheral vascular disease, unspecified; K59.00 Constipation, unspecified

== ENCOUNTER 2017-09-12 11:29 | Emergency (ER) | payer MEDICARE ==
[2017-09-03 14:58] VITALS: BMI 54.8
[~2017-09-12 11:29] MED LIST changes: +MACRODANTIN100 MG PO; +METHADONE5 MG PO; +METOPROLOL TAR100 M1 PO; +UROCIT-K10 MEQ PO
[2017-09-12 12:28] LABS: BASOPHILS 0.7 % (0-2); EOSINOPHILS 1.3 % (0-7); HEMOGLOBIN 13.6 g/dL (13.5-17.5); IMMATURE GRANULOCYTES 0.4 % (0-5); LYMPHOCYTES 23.2 % (15-50); MCV 97.1 fL (80.0-100.0); MEAN PLATELET VOLUME 11.6 fL (7.4-10.4); NEUTROPHILS 63.4 % (40-80); PLATELET COUNT 182 10x3/uL (130-400); RBC 4.12 10x6/uL (4.20-6.10); RDW 12.3 % (11.5-14.5)
[2017-09-12 12:40] LABS: ALBUMIN 2.7 g/dL (3.4-5.0); ALKALINE PHOSPHATASE 42 U/L (46-116); ALT (SGPT) 33 U/L (10-68); CALC OSMOLALITY 279 mosm/kg (275-300); CALCIUM 8.4 mg/dL (8.5-10.1); CARBON DIOXIDE 35.6 mmol/L (21.0-32.0); CHLORIDE - SERUM 100 mmol/L (98-107); CREATININE - SERUM 0.9 mg/dL (0.6-1.3); GLUCOSE 127 mg/dL (74-106); LIPASE 371 U/L (73-393); POTASSIUM - SERUM 3.6 mmol/L (3.5-5.1); PROTEIN - SERUM 6.5 g/dL (6.4-8.2); SODIUM 140 mmol/L (136-145); UREA NITROGEN 11 mg/dL (7-18); eGFR NON AFRICAN AMERICAN > 90 mL/min (90-120)
[2017-09-12 14:49] LABS: MAGNESIUM - SERUM 1.2 mg/dL (1.8-2.4)
[2017-09-12 19:03] LABS: APPEARANCE HAZY (CLEAR); BACTERIA FEW /hpf (NONE SEEN); BILIRUBIN NEGATIVE (NEGATIVE); COLOR YELLOW (YELLOW); GLUCOSE NEGATIVE (NEGATIVE); KETONE NEGATIVE (NEGATIVE); NITRITE NEGATIVE (NEGATIVE); PROTEIN TRACE mg/dL (NEGATIVE); RED CELLS - URINE 0-5 /hpf (0-5); SPECIFIC GRAVITY 1.025 (1.005-1.020); UROBILINOGEN NORMAL (NORMAL); WHITE CELLS - URINE 0-5 /hpf (0-5)
== END 2017-09-12 16:21 | disposition home or self-care (01) ==
LOC: D.ER 11:29
PROVIDERS: Emergency Medicine
DX: R10.9 Unspecified abdominal pain (principal)

== ENCOUNTER 2018-08-09 11:10 | Emergency (ER) | payer MEDICARE ==
[~2018-08-09] VITALS: Ht 177.8 cm; Wt 168.2 kg
[2018-08-09 11:19] VITALS: Ht 177.8 cm; Wt 168.2 kg
[2018-08-09 12:11] LABS: BASOPHILS 0.2 % (0-2); EOSINOPHILS 0.4 % (0-7); HEMATOCRIT 44.7 % (42.0-54.0); HEMOGLOBIN 15.7 g/dL (13.5-17.5); IMMATURE GRANULOCYTES 0.3 % (0-5); LYMPHOCYTES 16.2 % (15-50); MCH 33.3 pg (26.0-34.0); MCHC 35.1 g/dL (31.0-37.0); MCV 94.9 fL (80.0-100.0); MEAN PLATELET VOLUME 11.9 fL (7.4-10.4); MONOCYTES 7.5 % (2-11); NEUTROPHILS 75.4 % (40-80); PLATELET COUNT 187 10x3/uL (130-400); RBC 4.71 10x6/uL (4.20-6.10); RDW 12.5 % (11.5-14.5); WBC 9.8 10x3/uL (4.8-10.8)
[2018-08-09 12:19] LABS: INR 1.06 (0.85-1.17); PROTIME 13.3 SECONDS (11.6-15.0)
[2018-08-09 12:21] LABS: D-DIMER-QUANTITATIVE 1.05 ug/mLFEU (0.20-0.54)
[2018-08-09 12:26] LABS: ALBUMIN 3.5 g/dL (3.4-5.0); ALKALINE PHOSPHATASE 54 U/L (46-116); ALT (SGPT) 19 U/L (10-68); BILIRUBIN - TOTAL 0.66 mg/dL (0.2-1.3); CALC OSMOLALITY 272 mosm/kg (275-300); CALCIUM 8.9 mg/dL (8.5-10.1); CARBON DIOXIDE 22.9 mmol/L (21.0-32.0); CHLORIDE - SERUM 99 mmol/L (98-107); CREATININE - SERUM 0.9 mg/dL (0.6-1.3); GLUCOSE 144 mg/dL (74-106); LDL-HDL RATIO 2.4 ratio (1.5-3.5); POTASSIUM - SERUM 3.5 mmol/L (3.5-5.1); PROTEIN - SERUM 7.8 g/dL (6.4-8.2); SODIUM 135 mmol/L (136-145); UREA NITROGEN 13 mg/dL (7-18); eGFR NON AFRICAN AMERICAN > 90 mL/min (90-120)
[2018-08-09 12:36] LABS: CKMB 1.1 U/L (0.0-3.6); CREATINE KINASE 71 UL (21-232); TROPONIN-I < 0.017 ng/mL (0.000-0.060)
[2018-08-09 19:56] VITALS: BP 162/93
== END 2018-08-09 19:56 | disposition home or self-care (01) ==
LOC: D.ER 11:10
PROVIDERS: Family Medicine
DX: R07.89 Other chest pain (principal); M54.5 Low back pain; G35 Multiple sclerosis; E11.9 Type 2 diabetes mellitus without complications; R00.1 Bradycardia, unspecified; Z86.79 Personal history of other diseases of the circulatory system

== ENCOUNTER 2018-12-15 21:54 | Inpatient (IN) | payer MEDICARE, BC | END 2018-12-16 12:25 | disposition home or self-care (01) | DRG 282 | LOC: D.ER 21:54 → D.M2 23:15 | PROVIDERS: ADMIT Internal Medicine Cardiovascular Disease | PROC: B2111ZZ Fluoroscopy of Multiple Coronary Arteries using Low Osmolar Contrast (ICD-10-PCS; principal; 2018-12-15) | PROC: B2151ZZ Fluoroscopy of Left Heart using Low Osmolar Contrast (ICD-10-PCS; 2018-12-15) | PROC: 4A023N7 Measurement of Cardiac Sampling and Pressure, Left Heart, Percutaneous Approach (ICD-10-PCS; 2018-12-15) | DX: I21.19 ST elevation (STEMI) myocardial infarction involving other coronary artery of inferior wall (principal); I25.111 Atherosclerotic heart disease of native coronary artery with angina pectoris with documented spasm; E11.40 Type 2 diabetes mellitus with diabetic neuropathy, unspecified; H35.30 Unspecified macular degeneration; G35 Multiple sclerosis; M06.9 Rheumatoid arthritis, unspecified; I50.9 Heart failure, unspecified; J44.9 Chronic obstructive pulmonary disease, unspecified; E11.51 Type 2 diabetes mellitus with diabetic peripheral angiopathy without gangrene; F32.9 Major depressive disorder, single episode, unspecified; F03.90 Unspecified dementia, unspecified severity, without behavioral disturbance, psychotic disturbance, mood disturbance, and anxiety; I11.0 Hypertensive heart disease with heart failure; Z86.73 Personal history of transient ischemic attack (TIA), and cerebral infarction without residual deficits; Z95.5 Presence of coronary angioplasty implant and graft ==

== ENCOUNTER 2018-12-28 11:25 | Emergency (ER) | payer MEDICARE, BC ==
[~2018-12-28] VITALS: Ht 177.8 cm; Wt 168.6 kg
[~2018-12-28 11:25] MED LIST changes: +MOVANTIK25 MG PO; +NOVOLOG100 UNIT/1 SC; +NUCYNTA ER150 MG PO
[2018-12-28 11:29] VITALS: Ht 177.8 cm; Wt 168.6 kg
[2018-12-28 12:21] LABS: BASOPHILS 0.2 % (0-2); EOSINOPHILS 0.4 % (0-7); HEMATOCRIT 43.1 % (42.0-54.0); HEMOGLOBIN 14.9 g/dL (13.5-17.5); IMMATURE GRANULOCYTES 0.5 % (0-5); LYMPHOCYTES 10.8 % (15-50); MCH 33.2 pg (26.0-34.0); MCHC 34.6 g/dL (31.0-37.0); MEAN PLATELET VOLUME 11.4 fL (7.4-10.4); MONOCYTES 8.3 % (2-11); NEUTROPHILS 79.8 % (40-80); PLATELET COUNT 176 10x3/uL (130-400); RBC 4.49 10x6/uL (4.20-6.10); RDW 12.6 % (11.5-14.5); WBC 15.1 10x3/uL (4.8-10.8)
[2018-12-28 12:27] LABS: INR 1.05 (0.85-1.17); PROTIME 13.2 SECONDS (11.6-15.0)
[2018-12-28 12:28] LABS: APTT 29.4 SECONDS (22.8-39.4)
[2018-12-28 12:36] LABS: ALBUMIN 3.1 g/dL (3.4-5.0); ALKALINE PHOSPHATASE 52 U/L (46-116); ALT (SGPT) 22 U/L (10-68); CALC OSMOLALITY 275 mosm/kg (275-300); CALCIUM 8.8 mg/dL (8.5-10.1); CARBON DIOXIDE 25.4 mmol/L (21.0-32.0); CHLORIDE - SERUM 103 mmol/L (98-107); CREATININE - SERUM 0.9 mg/dL (0.6-1.3); POTASSIUM - SERUM 3.8 mmol/L (3.5-5.1); PROTEIN - SERUM 6.9 g/dL (6.4-8.2); SODIUM 139 mmol/L (136-145); UREA NITROGEN 8 mg/dL (7-18); eGFR NON AFRICAN AMERICAN > 90 mL/min (90-120)
[2018-12-28 12:37] LABS: GLUCOSE 97 mg/dL (74-106)
[2018-12-28 12:42] LABS: CKMB 0.9 U/L (0.0-3.6); CREATINE KINASE 44 UL (21-232); PRO BNP 828 pg/mL (0-125); TROPONIN-I < 0.017 ng/mL (0.000-0.060)
[2018-12-28] MEDS ORDERED: FUROSEMIDE20 MG PO (13:55)
[2018-12-28 14:19] VITALS: BP 152/88
== END 2018-12-28 14:20 | disposition home or self-care (01) ==
LOC: D.ER 11:25
PROVIDERS: Emergency Medicine
DX: R63.4 Abnormal weight loss (principal)